=== PATIENT | female | born 1990 | race Caucasian/White ===

== ENCOUNTER 2017-11-17 09:14 | Emergency (ER) | payer BC, OTHER ==
[2017-11-17 09:33] VITALS: BP 141/89; BMI 30.1
[2017-11-17] MEDS ORDERED: TORADOL 60 MG VIAL IM ONE (10:42)
--- NOTE | 2017-11-17 10:43 | DR.GENAD ---
HPI - PCP Primary Care Physician: NANCY OMER - HPI Comment HPI Comment: PATIENT SAID MED TAKING AT HOME DID NOT RELIEVE PAIN. DENIES FEVER OR TRAUMA. NO DYSURIA. - Complaint/Symptoms Chief Complaint Doctors Comments: LEFT FLANK PAIN TIMES 3 DAYS. Chief Complaint:: PT C/O HAVING LEFT RIB PAIN THAT START ON WEDNESDAY AND SHE C/O THAT IT IS GETTING WORSE".. Self Treatment fo Chief Complaint: PT C/O PAIN WHEN SHE TAKES A BREATHE IN.. PT DENIES ANY TRAUMA,, PT HAS A LITTLE COUGH PT TOOK 3 [place]CO THAT HER BF BOUGHT. - Nurses notes reviewed Nurses Notes Review: Yes - Source History Provided: Patient - Mode of Arrival Mode of Arrival: Ambulatory - Timing Onset of Chief Complaint: 11/14/17 Came on: Suddenly - Duration Duration: Constant Duration: Days - Severity Severity: Moderate PMH - PMH Past Medical History: No Past Surgical History: Yes Surgical History: Past Surgical History Comment: TIMES ONE - Family History History of Family Medical Conditions: No Family Medical History: Cancer, Hypertension - Social History Does patient currently use any type of tobacco product: Yes Have you used tobacco products in the last 12 months: Yes Type of Tobacco Use: Cigarettes How many years tobacco product used: 5 Does any household member use tobacco: No Alcohol Use: None Do you use any recreational Drugs:: No Lives With: Family Lives Where: Home - infectious screening In the last 2 months have you had wt loss of >10#?: NO Have you had fever, night sweats or hemotysis?: No Have you traveled outside the country in the last 6 months?: No Isolation: Standard ROS - Review of Systems Constitutional: No Symptoms Reported Eyes: No Symptoms Reported ENTM: No Symptoms Reported Respiratoy: No Symptoms Reported Cardiovascular: No Symptoms Reported Gastrointestinal/Abdominal: Abdominal Pain, Nausea, Other (LEFT FLANK PAIN) Genitourinary: No Symptoms Reported Neurological: No Symptoms Reported Musculoskeletal: No Symptoms Reported Integumentary: No Symptoms Reported Hematologic/Lymphatic: No Symptoms Reported Endocrine: No Symptoms Reported All Other Systems: Reviewed and Negative PE - Vital Signs Vitals: Temperature 98.2 F Pulse Rate 96 Respiratory Rate 18 Blood Pressure [Right Arm] 105/64 Blood Pressure [Left Arm] 105/57 Blood Pressure 141/89 O2 Sat by Pulse Oximetry 98 - General Limitations: No Limitations General Appearance: Alert - Head Head Exam: Normal Inspection - Eyes Eye exam: Normal Appearance - ENT ENT Exam: Normal External Ear Exam External Ear Exam: Normal External Inspection TM/Canal Exam: Bilateral Normal Nose Exam: Normal Nose Exam Mouth Exam: Normal Inspection Throat Exam: Normal Inspection - Neck Neck Exam: Trachea Midline - Chest Chest Inspection: Symmetric Chest Wall Rise - Respiratory Respiratory Exam: Normal Lung Sounds Bilat Respiratory Exam: Bilateral Clear to Auscultation - Cardiovascular Cardiovascular Exam: Regular Rate, Normal Rhythm, Normal Heart Sounds - Abdominal Exam Abdominal Exam: Normal Bowel Sounds, Soft, Tenderness Abdominal Tenderness: LUQ, Moderate - Extremities Extremities Exam: Normal Inspection - Back Back Exam: (L) CVA Tenderness - Neurologic Neurological Exam: Alert, Oriented X3 - Psychiatric Psychiatric Exam: Normal Affect, Normal Mood - Skin Skin Exam: Normal Color MDM - Additional Information Additional Information Obtained From: Family - Differential Diagnosis Differential Diagnosis: LEFT FLANK PAIN, KIDNEY STONE. UTI. PYELONEPHRITIS, RIB PAIN Course - Treatment Treatment: SEE ORDERS. IM TORADOL, PAIN SLIGHTLY IMPROVE. - Education/Counseling Education/Counseling: Patient, Education Educated On: Diagnosis, Needs for Follow Up ROR - Labs Reviewed Laboratory Results Reviewed?: Yes Laboratory: HCG, Qual Negative <10 mIU/mL 11/17/17 10:55 Specimen Type Clean catch urine 11/17/17 11:46 Urine Color Yellow (YELLOW) 11/17/17 11:46 Urine Appearance Cloudy (CLEAR) 11/17/17 11:46 Urine pH 5.0 (5.0 - 8.0) 11/17/17 11:46 Ur Specific [place] 1.020 (1.000-1.030) 11/17/17 11:46 Urine Protein 2+ (NEGATIVE) 11/17/17 11:46 Urine Glucose (UA) Negative (NEGATIVE) 11/17/17 11:46 Urine Ketones Negative (NEGATIVE) 11/17/17 11:46 Urine Occult Blood 2+ (NEGATIVE) 11/17/17 11:46 Urine Nitrite Positive (NEGATIVE) 11/17/17 11:46 Urine Bilirubin Negative (NEGATIVE) 11/17/17 11:46 Urine Urobilinogen 1+ (NORMAL) 11/17/17 11:46 Ur Leukocyte Esterase 2+ (NEGATIVE) 11/17/17 11:46 Urine RBC 5-10 /HPF (NEGATIVE) 11/17/17 11:46 Urine WBC 20-30 /HPF (NEGATIVE) 11/17/17 11:46 Ur Squamous Epith Cells Moderate /HPF (NEGATIVE) 11/17/17 11:46 Urine Bacteria 4+ /HPF (NEGATIVE) 11/17/17 11:46 Urine Mucus Moderate /HPF (NEGATIVE) 11/17/17 11:46 Ur Culture Indicated? Yes/culture set up 11/17/17 11:46 - XRAY XRAY Interpreted by: Radiologist XRAY Findings: REPORT DISCUSS WITH PATIENT. - Diagnosis Discharge Problem: Left flank pain, UTI (urinary tract infection) Abdominal pain Qualifiers: Abdominal location: left upper quadrant Qualified Code(s): R10.12 - Left upper quadrant pain - Discharge Plan Disposition: HOME, SELF-CARE Condition: Stable Prescriptions: Cyclobenzaprine HCl [FLEXERIL 10 MG *] 10 mg PO TID #20 tab Ibuprofen [MOTRIN TAB 800 MG *] 800 mg PO Q8H PRN #30 tab PRN Reason: Pain/Inflammation Sulfamethoxazole-Trimethoprim [BACTRIM DS TAB 800/160 MG *] 1 tab PO BID #20 tab - Follow ups/Referrals Follow ups/Referrals: Julian Murray [Primary Care Provider] - 3 days - Instructions Instructions: Urinary Tract Infection, Adult, [id number], Back Pain, Adult, [id number] Additional Instructions: RETURN TO ED IF WORSE.
[2017-11-17] MEDS ORDERED: TORADOL 60 MG VIAL ONE (10:55)
[2017-11-17 11:18] LABS: SERUM PREGNANCY TEST, QUAL NEGATIVE <10 mIU/mL
--- NOTE | 2017-11-17 11:21 | CT ---
HISTORY: Left flank pain Study: CT abdomen pelvis without contrast Comparison: None Technique: Axial noncontrast images with coronal and sagittal reformats. Dose reduction procedures we re used with mA/kv adjusted for body size. Findings: The lung bases are clear with the exception of minimal subsegmental atelectasis in the left the liver , spleen, adrenal glands, and pancreas are within normal limits to the limitations of an unenhanced e xamination. No opaque stones are visible within the gallbladder. The kidneys are unobstructed and wit hout stones. No ureteral calculi are identified. The appendix is normal. No intraperitoneal or retrop eritoneal lymphadenopathy of significance is identified. There are no findings suggestive of divertic ulitis or colitis. There is a moderately large amount of stool within the colon suggestive of constip ation. Examination of the pelvis demonstrated no evidence for pelvic masses, pelvic fluid, or pelvic lymphadenopathy. There is an IUD present within the uterus. No lytic or blastic skeletal lesions are identified. IMPRESSION: No evidence for obstructing renal or ureteral calculi Normal appendix Constipation Reported By:
[2017-11-17 11:54] LABS: BILIRUBIN,URINE NEGATIVE (NEGATIVE); BLOOD/HEMOGLOBIN,URINE 2+ (NEGATIVE); GLUCOSE, URINE NEGATIVE (NEGATIVE); KETONES,URINE NEGATIVE (NEGATIVE); LEUKOCYTE ESTERASE ,URINE 2+ (NEGATIVE); NITRITES,URINE POSITIVE (NEGATIVE); PROTEIN,URINE 2+ (NEGATIVE); UROBILINOGEN,URINE 1+ (NORMAL)
[2017-11-17 11:57] LABS: APPEARANCE,URINE CLOUDY (CLEAR); COLOR,URINE YELLOW (YELLOW)
[2017-11-17] MEDS ORDERED: ROCEPHIN VIAL 1 GM ONE (12:00)
[2017-11-17] MEDS ORDERED: XYLOCAINE 1 % (PLAIN) ONE (12:00)
[2017-11-17] MEDS ORDERED: ROCEPHIN VIAL 1 GM IM ONE (12:01)
[2017-11-17 12:08] LABS: BACTERIA,URINE 4+ /HPF (NEGATIVE); SQUAMOUS EPITHELIAL CELL,UR MODERATE /HPF (NEGATIVE)
[2017-11-17 12:09] LABS: MUCUS,URINE MODERATE /HPF (NEGATIVE)
== END 2017-11-17 12:20 | disposition home or self-care (01) ==
LOC: ER 09:52
DX: N39.0 Urinary tract infection, site not specified (principal); R10.12 Left upper quadrant pain; B96.29 Other Escherichia coli [E. coli] as the cause of diseases classified elsewhere; K59.00 Constipation, unspecified
CPT/HCPCS: 36415; 74176; 81001; 84703; 87086; 87088; 87186; 96372; 99283; 99284; J0696; J1885; J2001